=== PATIENT | female | born 1990 | race Caucasian/White ===

== ENCOUNTER 2021-01-09 00:22 | Emergency (ER) | payer OTHER ==
[~2021-01-09] VITALS: Ht 157.5 cm; Wt 47.6 kg
[2021-01-09] MEDS ORDERED: LORAZEPAM1 MG (00:47)
== END 2021-01-09 02:48 | disposition home or self-care (01) ==
LOC: ER 00:22
DX: R00.2 Palpitations (principal); F06.4 Anxiety disorder due to known physiological condition